=== PATIENT | male | born 1975 | race Caucasian/White ===

== ENCOUNTER 2018-03-22 09:00 | Outpatient (CLI) | payer BC ==
--- NOTE | 2018-03-22 09:39 | ULT ---
RIGHT UPPER QUADRANT ULTRASOUND: History: Elevated liver enzymes. Technique: Multiple longitudinal and transverse images of the right upper quadrant of the abdomen obt ained using a multihertz curvilinear transducer. FINDINGS: Real-time, color flow, and spectral waveform doppler analysis demonstrates the liver to be unremarkable. The gallbladder is unremarkable with no evidence of gallstones. No evidence of gallblad lisette wall thickening. No evidence of pericholecystic fluid seen. The common bile duct is of normal size measuring 3.4 mm. Visualized portion of the pancreas is unremarkable. The right kidney is unremarkable with no evidence of hydronephrosis or mass lesions. IMPRESSION: Normal right upper quadrant ultrasound. POS: [facility]
== END 2018-03-22 09:01 | disposition home or self-care (01) ==
LOC: BICULT 09:00
PROVIDERS: ATTEND Family Medicine
DX: R74.8 Abnormal levels of other serum enzymes (principal); D69.6 Thrombocytopenia, unspecified
CPT/HCPCS: 76705